=== PATIENT | female | born 1995 | race African-American/Black ===

== ENCOUNTER 2022-04-30 11:12 | Emergency (ER) | payer MEDICAID ==
[~2022-04-30] VITALS: Ht 167.6 cm; Wt 75.0 kg
[2022-04-30 11:22] VITALS: BP 147/97
== END 2022-04-30 16:41 | disposition left against medical advice (07) ==
LOC: ER 11:12
DX: Z53.21 Procedure and treatment not carried out due to patient leaving prior to being seen by health care provider (principal)